=== PATIENT | male | born 1960 | race Two or more races ===

== ENCOUNTER 2022-11-15 16:30 | Inpatient (IN) | payer OTHER ==
[2022-11-15 18:29] VITALS: BMI 28.3
[2022-11-15] MEDS ORDERED: LOPERAMIDE HCL 2 MG CAPSULE PO PRN (20:55)
[2022-11-15] MEDS ORDERED: POLYETHYLENE GLYCOL (HEALTHYLAX) 3350 17 GM PACKET PO PRN (20:55)
[2022-11-15] MEDS ORDERED: ACETAMINOPHEN 325 MG TABLET (FP) PO PRN (20:55)
[2022-11-15] MEDS ORDERED: MAG HYDROX/AL HYDROX/SIMETH 30 ML UNIT-DOSE CUP PO PRN (20:55)
[2022-11-15] MEDS ORDERED: BENZONATATE 200 MG CAPSULE PO PRN (20:55)
[2022-11-15] MEDS ORDERED: P-EPHED 60MG/TRIPROLIDI 2.5MG TABLET PO PRN (20:55)
[2022-11-15] MEDS ORDERED: IBUPROFEN 400 MG TABLET (FP) PO PRN (20:55)
[2022-11-15] MEDS ORDERED: MAGNESIUM HYDROX 2400MG/30ML ORAL SUSPENSION 30 ML CUP PO PRN (20:55)
[2022-11-15] MEDS ORDERED: MELATONIN 5 MG TABLETS PO PRN (20:55)
[2022-11-15] MEDS ORDERED: guaiFENesin 600 MG TABLET.ER (FP) PO PRN (20:55)
[2022-11-15] MEDS ORDERED: BENZOCAINE/MENTHOL (CHLORASEPTIC ) LOZENGE MM PRN (20:55)
[2022-11-15] MEDS ORDERED: IBUPROFEN 600 MG TABLET (FP) PO PRN (20:55)
[2022-11-15] MEDS ORDERED: INSULIN (NOVOLOG) ASPART 100 UNITS/ML 10ML VIAL ONE (23:18)
[2022-11-15] MEDS: INSULIN SLIDING SCALE (NOVOLOG) 1 VIAL SQ SCH (23:24)
[2022-11-16] MEDS: GABAPENTIN 100 MG CAPSULE PO SCH ×3 (00:30→21:11)
[2022-11-16] MEDS: THIAMINE HCL 100 MG TABLET (FP) PO SCH ×2 (00:30→21:11)
[2022-11-16] MEDS: CARVEDILOL 3.125 MG TABLET (FP) PO SCH ×3 (00:30→21:12)
[2022-11-16] MEDS ORDERED: TUBERCULIN PPD 5 TU/0.1ML SYRINGE (IN PATIENT USE ONLY) ID ONE (00:30)
[2022-11-16] MEDS: MONTELUKAST NA 10 MG TABLET PO SCH ×2 (00:30→21:12)
[2022-11-16] MEDS: ATORVASTATIN CA 40 MG TABLET (FP) PO SCH ×2 (00:30→21:11)
[2022-11-16 00:46] VITALS: RESP 18
[2022-11-16] MEDS ORDERED: TUBERCULIN PPD 5 TU/0.1ML VIAL ID ONE ×2 (05:44→06:47)
[2022-11-16] MEDS: metFORMIN HCL 500 MG TABLET (FP) PO SCH ×2 (06:16→16:26)
[2022-11-16] MEDS: INSULIN SLIDING SCALE (NOVOLOG) 1 VIAL SQ SCH ×4 (07:03→21:14)
[2022-11-16] MEDS: ASPIRIN COATED 81 MG TABLET.EC PO SCH (10:28)
[2022-11-16] MEDS: PRENATAL VITAMINS W/ FOLIC ACID TABLET (FP) PO SCH (10:28)
[2022-11-16] MEDS: LOSARTAN POTASSIUM 25 MG TABLET PO SCH (10:28)
[2022-11-16] MEDS: LISINOPRIL 10 MG TABLET PO SCH (10:28)
[2022-11-16] MEDS: PANTOPRAZOLE 40 MG TABLET PO SCH (10:28)
[2022-11-16 11:10] LABS: ALBUMIN 3.6 g/dl (3.4-5.0); BLOOD UREA NITROGEN 17.4 mg/dL (7-18); CALCIUM 9.5 mg/dL (8.5-10.1)
[2022-11-16 11:12] LABS: HEMATOCRIT 35.8 % (35.4-49); HEMOGLOBIN 11.6 GM/dL (11.7-16.9); MCH 27.5 pg (25.7-33.7); MCHC 32.4 g/dl (32.0-35.9); MEAN CELL VOLUME 84.8 fl (80-96); MEAN PLT VOLUME 8.8 fl (7.5-11.1); PLATELET COUNT 362 10^3/uL (134-434); RBC 4.22 M/mm3 (4.00-5.60); RDW 17.1 % (11.9-15.9); WHITE BLOOD COUNT 8.5 K/mm3 (4.0-10.0)
[2022-11-16 11:13] LABS: URINE APPEARANCE CLEAR; URINE BILIRUBIN NEGATIVE (NEGATIVE); URINE COLOR YELLOW; URINE GLUCOSE (UA) 3+ (NEGATIVE); URINE KETONE NEGATIVE (NEGATIVE); URINE LEUK ESTERASE NEGATIVE (NEGATIVE); URINE NITRITE NEGATIVE (NEGATIVE); URINE PROTEIN NEGATIVE (NEGATIVE)
[2022-11-16 11:14] LABS: CREATININE 0.9 mg/dL (0.55-1.3)
[2022-11-16 11:16] LABS: BILIRUBIN,TOTAL 0.6 mg/dL (0.2-1); TOT PROT 7.2 g/dl (6.4-8.2)
[2022-11-16 11:55] LABS: SYPHILIS W/ RPR CONF NON-REACTIVE (NONREACTIVE)
[2022-11-16] MEDS ORDERED: INSULIN (NOVOLOG) ASPART 100 UNITS/ML 10ML VIAL ONE (16:26)
[2022-11-17] MEDS: metFORMIN HCL 500 MG TABLET (FP) PO SCH ×2 (07:10→16:27)
[2022-11-17] MEDS: INSULIN SLIDING SCALE (NOVOLOG) 1 VIAL SQ SCH (07:31)
[2022-11-17] MEDS: LISINOPRIL 10 MG TABLET PO SCH (09:58)
[2022-11-17] MEDS: ASPIRIN COATED 81 MG TABLET.EC PO SCH (09:58)
[2022-11-17] MEDS: PANTOPRAZOLE 40 MG TABLET PO SCH (09:58)
[2022-11-17] MEDS: CARVEDILOL 3.125 MG TABLET (FP) PO SCH ×2 (09:58→21:28)
[2022-11-17] MEDS: GABAPENTIN 100 MG CAPSULE PO SCH ×2 (09:59→21:28)
[2022-11-17] MEDS: LOSARTAN POTASSIUM 25 MG TABLET PO SCH (09:59)
[2022-11-17] MEDS: PRENATAL VITAMINS W/ FOLIC ACID TABLET (FP) PO SCH (09:59)
[2022-11-17] MEDS: THIAMINE HCL 100 MG TABLET (FP) PO SCH (21:28)
[2022-11-17] MEDS: ATORVASTATIN CA 40 MG TABLET (FP) PO SCH (21:28)
[2022-11-17] MEDS: MONTELUKAST NA 10 MG TABLET PO SCH (21:28)
[2022-11-17] MEDS ORDERED: INSULIN (LEVEMIR) 100 UNITS/ML UNITS SQ SCH (22:00)
[2022-11-18] MEDS: metFORMIN HCL 500 MG TABLET (FP) PO SCH (06:42)
[2022-11-18 07:38] VITALS: BP 142/79; PULSE 101; TEMP 97.9
[2022-11-18] MEDS ORDERED: guaiFENesin 600 MG TABLET.ER (FP) PO SCH (10:00)
[2022-11-18] MEDS: LOSARTAN POTASSIUM 25 MG TABLET PO SCH (10:04)
[2022-11-18] MEDS: CARVEDILOL 3.125 MG TABLET (FP) PO SCH (10:04)
[2022-11-18] MEDS: ASPIRIN COATED 81 MG TABLET.EC PO SCH (10:05)
[2022-11-18] MEDS: PRENATAL VITAMINS W/ FOLIC ACID TABLET (FP) PO SCH (10:05)
[2022-11-18] MEDS: PANTOPRAZOLE 40 MG TABLET PO SCH (10:05)
[2022-11-18] MEDS: LISINOPRIL 10 MG TABLET PO SCH (10:05)
[2022-11-18] MEDS: GABAPENTIN 100 MG CAPSULE PO SCH (10:05)
== END 2022-11-18 10:16 | disposition left against medical advice (07) | DRG 894 ==
LOC: YASAS 16:30 → Y3E 23:34
PROVIDERS: ADMIT Allergy & Immunology; ATTEND Family Medicine
PROC: HZ42ZZZ Group Counseling for Substance Abuse Treatment, Cognitive-Behavioral (ICD-10-PCS; principal; 2022-11-15)
DX: F14.20 Cocaine dependence, uncomplicated (principal); F16.20 Hallucinogen dependence, uncomplicated; F19.282 Other psychoactive substance dependence with psychoactive substance-induced sleep disorder; F12.20 Cannabis dependence, uncomplicated; I10 Essential (primary) hypertension; J44.9 Chronic obstructive pulmonary disease, unspecified; E11.9 Type 2 diabetes mellitus without complications; Z79.4 Long term (current) use of insulin; H54.62 Unqualified visual loss, left eye, normal vision right eye; M17.0 Bilateral primary osteoarthritis of knee
CPT/HCPCS: 36415; 80053; 81003; 82962; 85027; 86780; 86803; C9803-CS; U0003; U0005

== ENCOUNTER 2023-05-26 11:03 | Inpatient (IN) | payer OTHER ==
[2023-05-26 13:09] VITALS: BMI 26.7
[2023-05-26] MEDS ORDERED: BENZONATATE 200 MG CAPSULE PO PRN (14:39)
[2023-05-26] MEDS ORDERED: hydrOXYzine PAMOATE 25 MG CAPSULE (FP) PO PRN (14:39)
[2023-05-26] MEDS ORDERED: MAG HYDROX/AL HYDROX/SIMETH 30 ML UNIT-DOSE CUP PO PRN (14:39)
[2023-05-26] MEDS ORDERED: guaiFENesin 600 MG TABLET.ER (FP) PO PRN (14:39)
[2023-05-26] MEDS ORDERED: MAGNESIUM HYDROX 2400MG/30ML ORAL SUSPENSION 30 ML CUP PO PRN (14:39)
[2023-05-26] MEDS ORDERED: COLLOIDAL OATMEAL 1 BAR EACH TP PRN (14:39)
[2023-05-26] MEDS ORDERED: BENZOCAINE/MENTHOL (CHLORASEPTIC ) LOZENGE MM PRN (14:39)
[2023-05-26] MEDS ORDERED: POLYETHYLENE GLYCOL (HEALTHYLAX) 3350 17 GM PACKET PO PRN (14:39)
[2023-05-26] MEDS ORDERED: NALOXONE HCL (KLOXXADO) 8 MG SPRAY NS PRN (14:39)
[2023-05-26] MEDS ORDERED: LOPERAMIDE HCL 2 MG CAPSULE PO PRN (14:39)
[2023-05-26] MEDS ORDERED: ACETAMINOPHEN 325 MG TABLET (FP) PO PRN (14:39)
[2023-05-26] MEDS ORDERED: NALOXONE HCL 0.4 MG/ML VIAL IM PRN (14:39)
[2023-05-26] MEDS ORDERED: ALBUTEROL SO4 HFA INHALER IH PRN (14:42)
[2023-05-26] MEDS: INSULIN SLIDING SCALE (NOVOLOG) 1 VIAL SQ SCH ×2 (18:07→21:32)
[2023-05-26] MEDS: metFORMIN HCL 500 MG TABLET (FP) PO SCH (21:30)
[2023-05-26] MEDS: ATORVASTATIN CA 40 MG TABLET (FP) PO SCH (21:31)
[2023-05-26] MEDS: THIAMINE HCL 100 MG TABLET (FP) PO SCH (21:31)
[2023-05-26] MEDS: CARVEDILOL 3.125 MG TABLET (FP) PO SCH (21:31)
[2023-05-26] MEDS: MELATONIN 5 MG TABLETS PO SCH (21:31)
[2023-05-26] MEDS ORDERED: PATIENT'S OWN MEDICATION (NON-FORMULARY) (Insulin Glargine,Hum.Rec.Anlog [Basaglar Kwikpen SQ SCH (22:00)
[2023-05-26] MEDS: INSULIN (LEVEMIR) 100 UNITS/ML UNITS SQ SCH (23:11)
[2023-05-27 07:04] VITALS: RESP 18
[2023-05-27] MEDS: INSULIN SLIDING SCALE (NOVOLOG) 1 VIAL SQ SCH ×4 (07:57→21:13)
[2023-05-27] MEDS: PRENATAL VITAMINS W/ FOLIC ACID TABLET (FP) PO SCH (10:00)
[2023-05-27] MEDS: LOSARTAN POTASSIUM 25 MG TABLET PO SCH (10:00)
[2023-05-27] MEDS: CARVEDILOL 3.125 MG TABLET (FP) PO SCH ×2 (10:00→21:09)
[2023-05-27] MEDS: ASPIRIN COATED 81 MG TABLET.EC PO SCH (10:01)
[2023-05-27 10:19] LABS: URINE APPEARANCE CLEAR; URINE BILIRUBIN NEGATIVE (NEGATIVE); URINE COLOR YELLOW; URINE GLUCOSE (UA) 2+ (NEGATIVE); URINE KETONE TRACE (NEGATIVE); URINE LEUK ESTERASE NEGATIVE (NEGATIVE); URINE NITRITE NEGATIVE (NEGATIVE); URINE PROTEIN NEGATIVE (NEGATIVE); URINE UROBILINOGEN 0.2 mg/dL (0.2-1.0)
[2023-05-27 10:19] LABS: HEMATOCRIT 30.7 % (35.4-49); HEMOGLOBIN 10.1 GM/dL (11.7-16.9); MCH 25.2 pg (25.7-33.7); MCHC 32.8 g/dl (32.0-35.9); MEAN CELL VOLUME 76.7 fl (80-96); MEAN PLT VOLUME 9.1 fl (7.5-11.1); PLATELET COUNT 328 10^3/uL (134-434); RDW 18.7 % (11.9-15.9)
[2023-05-27 10:43] LABS: POTASSIUM 4.2 mmol/L (3.5-5.1)
[2023-05-27 10:46] LABS: ALBUMIN 3.1 g/dl (3.4-5.0); BLOOD UREA NITROGEN 21.5 mg/dL (7-18); CALCIUM 8.6 mg/dL (8.5-10.1)
[2023-05-27 10:49] LABS: CREATININE 0.9 mg/dL (0.55-1.3)
[2023-05-27 10:50] LABS: BILIRUBIN,TOTAL 0.3 mg/dL (0.2-1)
[2023-05-27 10:51] LABS: TOT PROT 6.4 g/dl (6.4-8.2)
[2023-05-27] MEDS: metFORMIN HCL 500 MG TABLET (FP) PO SCH ×2 (10:55→21:09)
[2023-05-27 11:47] LABS: SYPHILIS W/ RPR CONF NON-REACTIVE (NONREACTIVE)
[2023-05-27] MEDS: THIAMINE HCL 100 MG TABLET (FP) PO SCH (21:09)
[2023-05-27] MEDS: ATORVASTATIN CA 40 MG TABLET (FP) PO SCH (21:09)
[2023-05-27] MEDS: MELATONIN 5 MG TABLETS PO SCH (21:10)
[2023-05-27] MEDS: INSULIN (LEVEMIR) 100 UNITS/ML UNITS SQ SCH (21:12)
[2023-05-28] MEDS: INSULIN SLIDING SCALE (NOVOLOG) 1 VIAL SQ SCH ×4 (06:06→21:22)
[2023-05-28] MEDS: PRENATAL VITAMINS W/ FOLIC ACID TABLET (FP) PO SCH (10:24)
[2023-05-28] MEDS: metFORMIN HCL 500 MG TABLET (FP) PO SCH ×2 (10:25→16:29)
[2023-05-28] MEDS: LOSARTAN POTASSIUM 25 MG TABLET PO SCH (10:25)
[2023-05-28] MEDS: ASPIRIN COATED 81 MG TABLET.EC PO SCH (10:25)
[2023-05-28] MEDS: CARVEDILOL 3.125 MG TABLET (FP) PO SCH ×2 (10:25→21:20)
[2023-05-28] MEDS ORDERED: INSULIN SLIDING SCALE (NOVOLOG) 1 VIAL SQ ONE (11:41)
[2023-05-28] MEDS: FERROUS SO4 325 MG TABLET (FP) PO SCH (14:48)
[2023-05-28] MEDS: CLINDAMYCIN PHOSPHATE 1% TOPICAL GEL 30 GM TUBE TP SCH ×2 (14:48→21:21)
[2023-05-28] MEDS: ATORVASTATIN CA 40 MG TABLET (FP) PO SCH (21:20)
[2023-05-28] MEDS: MELATONIN 5 MG TABLETS PO SCH (21:20)
[2023-05-28] MEDS: THIAMINE HCL 100 MG TABLET (FP) PO SCH (21:20)
[2023-05-28] MEDS: INSULIN (LEVEMIR) 100 UNITS/ML UNITS SQ SCH (21:22)
[2023-05-29] MEDS: INSULIN SLIDING SCALE (NOVOLOG) 1 VIAL SQ SCH (06:35)
[2023-05-29] MEDS: metFORMIN HCL 500 MG TABLET (FP) PO SCH (06:40)
[2023-05-29 07:15] VITALS: BP 122/73; PULSE 85; TEMP 97.1
[2023-05-29] MEDS: CARVEDILOL 3.125 MG TABLET (FP) PO SCH (09:04)
[2023-05-29] MEDS: LOSARTAN POTASSIUM 25 MG TABLET PO SCH (09:04)
[2023-05-29] MEDS: PRENATAL VITAMINS W/ FOLIC ACID TABLET (FP) PO SCH (09:04)
[2023-05-29] MEDS: FERROUS SO4 325 MG TABLET (FP) PO SCH (09:05)
[2023-05-29] MEDS: ASPIRIN COATED 81 MG TABLET.EC PO SCH (09:05)
[2023-05-29] MEDS: CLINDAMYCIN PHOSPHATE 1% TOPICAL GEL 30 GM TUBE TP SCH (09:05)
== END 2023-05-29 09:10 | disposition home or self-care (01) | DRG 895 ==
LOC: YASAS 11:03 → Y3W 17:49
PROVIDERS: ADMIT Allergy & Immunology; ATTEND Psychiatry & Neurology Pain Medicine
PROC: HZ42ZZZ Group Counseling for Substance Abuse Treatment, Cognitive-Behavioral (ICD-10-PCS; principal; 2023-05-26)
DX: F10.20 Alcohol dependence, uncomplicated (principal); F14.20 Cocaine dependence, uncomplicated; F16.20 Hallucinogen dependence, uncomplicated; E72.20 Disorder of urea cycle metabolism, unspecified; F12.20 Cannabis dependence, uncomplicated; D64.9 Anemia, unspecified; E78.5 Hyperlipidemia, unspecified; I10 Essential (primary) hypertension; H54.62 Unqualified visual loss, left eye, normal vision right eye; E11.9 Type 2 diabetes mellitus without complications; Z79.4 Long term (current) use of insulin; N40.0 Benign prostatic hyperplasia without lower urinary tract symptoms
CPT/HCPCS: 36415; 80053; 81003; 82140; 82962; 85027; 86780; 86803; 87635; 87811

== ENCOUNTER 2023-07-05 10:10 | Inpatient (IN) | payer OTHER ==
[2023-07-05 11:42] VITALS: BMI 27.0
[2023-07-05] MEDS ORDERED: INSULIN (NOVOLOG) ASPART 100 UNITS/ML 10ML VIAL ONE (12:00)
[2023-07-05] MEDS: INSULIN SLIDING SCALE (NOVOLOG) 1 VIAL SQ SCH ×3 (12:04→21:30)
[2023-07-05] MEDS ORDERED: MAGNESIUM HYDROX 2400MG/30ML ORAL SUSPENSION 30 ML CUP PO PRN (14:14)
[2023-07-05] MEDS ORDERED: COLLOIDAL OATMEAL 1 BAR EACH TP PRN (14:14)
[2023-07-05] MEDS ORDERED: IBUPROFEN 400 MG TABLET (FP) PO PRN (14:14)
[2023-07-05] MEDS ORDERED: BENZONATATE 200 MG CAPSULE PO PRN (14:14)
[2023-07-05] MEDS ORDERED: guaiFENesin 600 MG TABLET.ER (FP) PO PRN (14:14)
[2023-07-05] MEDS ORDERED: POLYETHYLENE GLYCOL (HEALTHYLAX) 3350 17 GM PACKET PO PRN (14:14)
[2023-07-05] MEDS ORDERED: LOPERAMIDE HCL 2 MG CAPSULE PO PRN (14:14)
[2023-07-05 15:07] VITALS: RESP 18
[2023-07-05] MEDS: BENZOCAINE/MENTHOL (CHLORASEPTIC ) LOZENGE MM PRN (16:39)
[2023-07-05] MEDS: metFORMIN HCL 500 MG TABLET (FP) PO SCH (16:39)
[2023-07-05 17:02] LABS: PH,URINE 5.5 (5.0-8.0); URINE APPEARANCE CLEAR; URINE BILIRUBIN NEGATIVE (NEGATIVE); URINE COLOR YELLOW; URINE GLUCOSE (UA) 2+ (NEGATIVE); URINE KETONE NEGATIVE (NEGATIVE); URINE LEUK ESTERASE NEGATIVE (NEGATIVE); URINE NITRITE NEGATIVE (NEGATIVE); URINE PROTEIN NEGATIVE (NEGATIVE); URINE UROBILINOGEN 0.2 mg/dL (0.2-1.0)
[2023-07-05] MEDS: MELATONIN 5 MG TABLETS PO SCH (21:27)
[2023-07-05] MEDS: THIAMINE HCL 100 MG TABLET (FP) PO SCH (21:27)
[2023-07-05] MEDS: ATORVASTATIN CA 40 MG TABLET (FP) PO SCH (21:28)
[2023-07-05] MEDS: CARVEDILOL 3.125 MG TABLET (FP) PO SCH (21:28)
[2023-07-06] MEDS: metFORMIN HCL 500 MG TABLET (FP) PO SCH ×2 (06:16→16:19)
[2023-07-06] MEDS: INSULIN SLIDING SCALE (NOVOLOG) 1 VIAL SQ SCH ×5 (06:17→21:09)
[2023-07-06] MEDS: PRENATAL VITAMINS W/ FOLIC ACID TABLET (FP) PO SCH (10:05)
[2023-07-06] MEDS: ASPIRIN COATED 81 MG TABLET.EC PO SCH (10:06)
[2023-07-06] MEDS: CARVEDILOL 3.125 MG TABLET (FP) PO SCH ×2 (10:06→21:07)
[2023-07-06 11:58] LABS: POTASSIUM 4.7 mmol/L (3.5-5.1)
[2023-07-06 12:01] LABS: CALCIUM 9.3 mg/dL (8.5-10.1)
[2023-07-06 12:02] LABS: ALBUMIN 3.5 g/dl (3.4-5.0); BLOOD UREA NITROGEN 24.3 mg/dL (7-18)
[2023-07-06 12:07] LABS: BILIRUBIN,TOTAL 0.6 mg/dL (0.2-1)
[2023-07-06 12:27] LABS: HEMATOCRIT 33.4 % (35.4-49); HEMOGLOBIN 10.7 GM/dL (11.7-16.9); MCH 25.1 pg (25.7-33.7); MCHC 31.9 g/dl (32.0-35.9); MEAN CELL VOLUME 78.5 fl (80-96); MEAN PLT VOLUME 8.5 fl (7.5-11.1); PLATELET COUNT 420 10^3/uL (134-434); RBC 4.25 M/mm3 (4.00-5.60); RDW 19.4 % (11.9-15.9); WHITE BLOOD COUNT 6.3 K/mm3 (4.0-10.0)
[2023-07-06] MEDS: ALBUTEROL SO4 HFA INHALER IH PRN (17:36)
[2023-07-06] MEDS: ATORVASTATIN CA 40 MG TABLET (FP) PO SCH (21:07)
[2023-07-06] MEDS: MELATONIN 5 MG TABLETS PO SCH (21:07)
[2023-07-06] MEDS: THIAMINE HCL 100 MG TABLET (FP) PO SCH (21:07)
[2023-07-07] MEDS: BENZOCAINE/MENTHOL (CHLORASEPTIC ) LOZENGE MM PRN ×2 (00:47→16:23)
[2023-07-07] MEDS: ACETAMINOPHEN 325 MG TABLET (FP) PO PRN (00:47)
[2023-07-07] MEDS: metFORMIN HCL 500 MG TABLET (FP) PO SCH ×2 (06:52→15:57)
[2023-07-07] MEDS: INSULIN SLIDING SCALE (NOVOLOG) 1 VIAL SQ SCH ×4 (06:53→21:46)
[2023-07-07] MEDS: ASPIRIN COATED 81 MG TABLET.EC PO SCH (09:48)
[2023-07-07] MEDS: CARVEDILOL 3.125 MG TABLET (FP) PO SCH ×2 (09:48→21:41)
[2023-07-07] MEDS: PRENATAL VITAMINS W/ FOLIC ACID TABLET (FP) PO SCH (09:48)
[2023-07-07] MEDS: P-EPHED 60MG/TRIPROLIDI 2.5MG TABLET PO PRN (18:52)
[2023-07-07] MEDS: FLUTICASONE/SALMETEROL (WIXELA) 100 MCG/50 MCG DISKUS IH SCH (21:41)
[2023-07-07] MEDS: ATORVASTATIN CA 40 MG TABLET (FP) PO SCH (21:41)
[2023-07-07] MEDS: INSULIN (LEVEMIR) 100 UNITS/ML UNITS SQ SCH (21:42)
[2023-07-07] MEDS: MELATONIN 5 MG TABLETS PO SCH (21:43)
[2023-07-07] MEDS: THIAMINE HCL 100 MG TABLET (FP) PO SCH (21:43)
[2023-07-08] MEDS: metFORMIN HCL 500 MG TABLET (FP) PO SCH ×2 (06:01→16:16)
[2023-07-08] MEDS: INSULIN SLIDING SCALE (NOVOLOG) 1 VIAL SQ SCH ×4 (06:02→21:00)
[2023-07-08] MEDS: FLUTICASONE/SALMETEROL (WIXELA) 100 MCG/50 MCG DISKUS IH SCH ×2 (09:30→21:02)
[2023-07-08] MEDS: PRENATAL VITAMINS W/ FOLIC ACID TABLET (FP) PO SCH (09:31)
[2023-07-08] MEDS: ASPIRIN COATED 81 MG TABLET.EC PO SCH (09:31)
[2023-07-08] MEDS: CARVEDILOL 3.125 MG TABLET (FP) PO SCH ×2 (09:31→21:00)
[2023-07-08] MEDS ORDERED: FAMOTIDINE 20 MG TABLET PO ONE (09:32)
[2023-07-08] MEDS: BENZOCAINE/MENTHOL (CHLORASEPTIC ) LOZENGE MM PRN (09:36)
[2023-07-08] MEDS: ALBUTEROL SO4 HFA INHALER IH PRN (18:24)
[2023-07-08] MEDS: P-EPHED 60MG/TRIPROLIDI 2.5MG TABLET PO PRN (19:20)
[2023-07-08] MEDS: ATORVASTATIN CA 40 MG TABLET (FP) PO SCH (21:00)
[2023-07-08] MEDS: MELATONIN 5 MG TABLETS PO SCH (21:00)
[2023-07-08] MEDS: INSULIN (LEVEMIR) 100 UNITS/ML UNITS SQ SCH (21:00)
[2023-07-08] MEDS: THIAMINE HCL 100 MG TABLET (FP) PO SCH (21:03)
[2023-07-08] MEDS: MAG HYDROX/AL HYDROX/SIMETH 30 ML UNIT-DOSE CUP PO PRN (22:08)
[2023-07-09] MEDS: metFORMIN HCL 500 MG TABLET (FP) PO SCH ×2 (06:19→16:20)
[2023-07-09] MEDS: INSULIN SLIDING SCALE (NOVOLOG) 1 VIAL SQ SCH ×4 (06:22→21:21)
[2023-07-09] MEDS: CARVEDILOL 3.125 MG TABLET (FP) PO SCH ×2 (09:54→21:19)
[2023-07-09] MEDS: FLUTICASONE/SALMETEROL (WIXELA) 100 MCG/50 MCG DISKUS IH SCH ×2 (09:54→21:20)
[2023-07-09] MEDS: PRENATAL VITAMINS W/ FOLIC ACID TABLET (FP) PO SCH (09:54)
[2023-07-09] MEDS: ASPIRIN COATED 81 MG TABLET.EC PO SCH (09:54)
[2023-07-09] MEDS ORDERED: FAMOTIDINE 20 MG TABLET PO PRN (10:18)
[2023-07-09] MEDS: BACLOFEN 10 MG TABLET (FP) PO SCH ×2 (11:32→21:19)
[2023-07-09] MEDS: BENZOCAINE/MENTHOL (CHLORASEPTIC ) LOZENGE MM PRN ×2 (18:40→22:09)
[2023-07-09] MEDS: IBUPROFEN 600 MG TABLET (FP) PO PRN (18:40)
[2023-07-09] MEDS: ATORVASTATIN CA 40 MG TABLET (FP) PO SCH (21:19)
[2023-07-09] MEDS: THIAMINE HCL 100 MG TABLET (FP) PO SCH (21:20)
[2023-07-09] MEDS: MELATONIN 5 MG TABLETS PO SCH (21:20)
[2023-07-09] MEDS: INSULIN (LEVEMIR) 100 UNITS/ML UNITS SQ SCH (21:21)
[2023-07-09] MEDS ORDERED: ATORVASTATIN CA 40 MG TABLET (FP) PO SCH (22:00)
[2023-07-09] MEDS ORDERED: PATIENT'S OWN MEDICATION (NON-FORMULARY) (Fluticasone/Salmeterol [Advair Hfa 115-21 Mcg In PO SCH (22:00)
[2023-07-09] MEDS: ACETAMINOPHEN 325 MG TABLET (FP) PO PRN (22:08)
[2023-07-10] MEDS: INSULIN SLIDING SCALE (NOVOLOG) 1 VIAL SQ SCH ×4 (06:01→21:35)
[2023-07-10] MEDS: metFORMIN HCL 500 MG TABLET (FP) PO SCH ×2 (06:01→16:21)
[2023-07-10] MEDS: CARVEDILOL 3.125 MG TABLET (FP) PO SCH ×2 (10:18→21:32)
[2023-07-10] MEDS: LOSARTAN POTASSIUM 25 MG TABLET PO SCH (10:19)
[2023-07-10] MEDS: ASPIRIN COATED 81 MG TABLET.EC PO SCH (10:19)
[2023-07-10] MEDS: BACLOFEN 10 MG TABLET (FP) PO SCH ×2 (10:19→21:32)
[2023-07-10] MEDS: PRENATAL VITAMINS W/ FOLIC ACID TABLET (FP) PO SCH (10:21)
[2023-07-10] MEDS: FLUTICASONE/SALMETEROL (WIXELA) 100 MCG/50 MCG DISKUS IH SCH ×2 (10:21→21:32)
[2023-07-10] MEDS: IBUPROFEN 600 MG TABLET (FP) PO PRN (18:26)
[2023-07-10] MEDS: MAG HYDROX/AL HYDROX/SIMETH 30 ML UNIT-DOSE CUP PO PRN (18:26)
[2023-07-10] MEDS: ATORVASTATIN CA 40 MG TABLET (FP) PO SCH (21:32)
[2023-07-10] MEDS: THIAMINE HCL 100 MG TABLET (FP) PO SCH (21:32)
[2023-07-10] MEDS: MELATONIN 5 MG TABLETS PO SCH (21:32)
[2023-07-10] MEDS: INSULIN (LEVEMIR) 100 UNITS/ML UNITS SQ SCH (21:34)
[2023-07-11] MEDS: metFORMIN HCL 500 MG TABLET (FP) PO SCH ×2 (06:03→16:34)
[2023-07-11] MEDS: INSULIN SLIDING SCALE (NOVOLOG) 1 VIAL SQ SCH ×4 (06:05→21:07)
[2023-07-11] MEDS: PRENATAL VITAMINS W/ FOLIC ACID TABLET (FP) PO SCH (10:09)
[2023-07-11] MEDS: LOSARTAN POTASSIUM 25 MG TABLET PO SCH (10:09)
[2023-07-11] MEDS: BACLOFEN 10 MG TABLET (FP) PO SCH ×2 (10:10→21:05)
[2023-07-11] MEDS: ASPIRIN COATED 81 MG TABLET.EC PO SCH (10:10)
[2023-07-11] MEDS: FLUTICASONE/SALMETEROL (WIXELA) 100 MCG/50 MCG DISKUS IH SCH ×2 (10:10→21:06)
[2023-07-11] MEDS: CARVEDILOL 3.125 MG TABLET (FP) PO SCH ×2 (10:10→21:06)
[2023-07-11] MEDS: IBUPROFEN 600 MG TABLET (FP) PO PRN (19:25)
[2023-07-11] MEDS: ATORVASTATIN CA 40 MG TABLET (FP) PO SCH (21:05)
[2023-07-11] MEDS: MELATONIN 5 MG TABLETS PO SCH (21:05)
[2023-07-11] MEDS: THIAMINE HCL 100 MG TABLET (FP) PO SCH (21:05)
[2023-07-11] MEDS: INSULIN (LEVEMIR) 100 UNITS/ML UNITS SQ SCH (21:07)
[2023-07-12] MEDS: metFORMIN HCL 500 MG TABLET (FP) PO SCH (06:06)
[2023-07-12] MEDS: INSULIN SLIDING SCALE (NOVOLOG) 1 VIAL SQ SCH (06:09)
[2023-07-12 06:54] VITALS: TEMP 97.7
[2023-07-12 08:56] VITALS: BP 128/79; PULSE 94
[2023-07-12] MEDS: ASPIRIN COATED 81 MG TABLET.EC PO SCH (09:01)
[2023-07-12] MEDS: BACLOFEN 10 MG TABLET (FP) PO SCH (09:01)
[2023-07-12] MEDS: CARVEDILOL 3.125 MG TABLET (FP) PO SCH (09:01)
[2023-07-12] MEDS: PRENATAL VITAMINS W/ FOLIC ACID TABLET (FP) PO SCH (09:01)
[2023-07-12] MEDS: LOSARTAN POTASSIUM 25 MG TABLET PO SCH (09:01)
[2023-07-12] MEDS: FLUTICASONE/SALMETEROL (WIXELA) 100 MCG/50 MCG DISKUS IH SCH (09:01)
== END 2023-07-12 09:24 | disposition home or self-care (01) | DRG 895 ==
LOC: YASAS 10:10 → Y3W 14:34
PROVIDERS: ADMIT Allergy & Immunology; ATTEND Psychiatry & Neurology Pain Medicine
PROC: HZ42ZZZ Group Counseling for Substance Abuse Treatment, Cognitive-Behavioral (ICD-10-PCS; principal; 2023-07-05)
DX: F10.20 Alcohol dependence, uncomplicated (principal); F14.20 Cocaine dependence, uncomplicated; F16.20 Hallucinogen dependence, uncomplicated; F15.20 Other stimulant dependence, uncomplicated; F19.282 Other psychoactive substance dependence with psychoactive substance-induced sleep disorder; F12.20 Cannabis dependence, uncomplicated; D50.9 Iron deficiency anemia, unspecified; E78.5 Hyperlipidemia, unspecified; H54.62 Unqualified visual loss, left eye, normal vision right eye; I10 Essential (primary) hypertension; E11.9 Type 2 diabetes mellitus without complications; M17.0 Bilateral primary osteoarthritis of knee; Z87.01 Personal history of pneumonia (recurrent); Z99.89 Dependence on other enabling machines and devices
CPT/HCPCS: 0241U-QW; 36415; 80053; 81003; 82962; 85027; 86780; 87070; 87635; 87811; 93005; 93010; J0475